=== PATIENT | female | born 1930 | race Caucasian/White ===

== ENCOUNTER → 2017-01-29 | Outpatient (CLI) | payer OTHER | LOC: FIMAGING 14:47 | DX: J44.9 Chronic obstructive pulmonary disease, unspecified (principal); R91.1 Solitary pulmonary nodule ==

== ENCOUNTER 2017-05-18 07:30 | Inpatient (IN) | payer OTHER ==
--- NOTE | 2017-05-13 15:17 | GHP ---
[f rep st] PREOP HISTORY AND PHYSICAL DATE OF ADMISSION: 05/18/2017 PROBLEM: Painful right total knee arthroplasty. HISTORY OF PRESENT ILLNESS: The patient is an 86-year-old woman admitted for revision surgery on a right total knee arthroplasty. Dr. Moustapha Flores did her original total knee replacement in 1998. In the last few years she has been experiencing increasing soreness and swelling. The knee is particularly painful going up and down stairs. She has to go up stairs 1 step at a time. Her knee is stiff after sitting. She is a little more comfortable after she has been up and walking. Outpatient evaluation suggests that her patellar prosthetic component is loose. PAST MEDICAL HISTORY: She is treated for elevated cholesterol. She also uses an inhaler for emphysema. She is on valsartan for hypertension. No history of heart disease or stents. PAST SURGICAL HISTORY: She has had bilateral total shoulder arthroplasties performed by Dr. Renny Hernandez. CURRENT MEDICATIONS: ProAir inhaler. Simvastatin 40 mg per day. Utibron inhaler. Valsartan 80 mg a day for hypertension. ALLERGIES: Drugs: None. Metal allergy: None. Latex allergy: None. SOCIAL HISTORY: The patient is . She does not smoke cigarettes but she did smoke for many, many years. She occasionally drinks alcohol. She is retired. PHYSICAL EXAMINATION: GENERAL: She is an alert, healthy-appearing elderly woman. Height 5 feet 1 inch. Weight 128 pounds. BMI 24.2. EYES: Conjunctivae and sclerae are clear. Pupils are round and reactive. She has had bilateral cataract surgery. MOUTH: Good oral hygiene. No loose teeth. CHEST: Clear. HEART: Regular rhythm, no murmurs. EXTREMITIES: Pertinent findings limited to her right knee. She has full extension and 120 degrees of flexion. A small effusion is present. The patella feels like it tracks properly. She has mild patellofemoral crepitation. The patella is not tender with manipulation and compression. Her collateral ligaments are stable. IMAGING: She had films on April 09, 2017. Her femoral and tibial components look fine. Her patella is tilted and subluxed. It looks like the patellar component might be loose. IMPRESSION ON ADMISSION: 1. 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 2. Status post left total knee arthroplasty with a good result. 3. Treatment for hypertension. 4. Treatment for emphysema. 5. Treatment for elevated cholesterol. PLAN: She will undergo revision surgery for her right total knee arthroplasty. The surgery has been described to her, including the risks, complications, expectations, and recovery time. The various possibilities for the revision surgery have viewed been reviewed with her. I will probably have to redo her patellar component. I might do a tibial liner exchange if there is evidence of poly wear. All her questions have been answered. I have discussed with her the risk of infection. There is a possibility that revision surgery will not solve her pain. All her questions have been answered and she consents to surgery. /[id number]/MODL MTDD
[~2017-05-18 07:30] MED LIST: NS IV ONE; POVIDONE-IODINE 20 ML in SODIUM CL IRRIG SOLUTION 500 ML IRR ONE; ROPIVACAINE 0.2% 80 MG, EPINEPHrine 0.2 MG, KETOROLAC TROMETHAMINE 30 MG in SYRINGE 0 ML IU ONE; TRANEXAMIC ACID IV ONE
[2017-05-18] MEDS ORDERED: DEXAMETHASONE 4 MG/ML VIAL IVP ONE (08:12)
[2017-05-18] MEDS ORDERED: FAMOTIDINE 20 MG TAB PO ONE (08:12)
[2017-05-18] MEDS ORDERED: GABAPENTIN 300 MG CAP PO ONE (08:12)
[2017-05-18] MEDS ORDERED: ACETAMINOPHEN 325 MG TAB PO ONE (08:12)
[2017-05-18] MEDS ORDERED: ceFAZolin 2 GM/SWFI 2 GM/20 ML SYR IVP ONE (08:12)
[2017-05-18] MEDS ORDERED: LR 1,000 ML IV ONE (08:12)
[2017-05-18] MEDS ORDERED: LIDOCAINE 1% 2 ML INJ ID PRN (08:12)
--- NOTE | 2017-05-18 08:53 | PDHPUP ---
History & Physical Update H&P update statement: This history and physical update is based on an assessment of the patient which was completed after admission or registration (within 24 hours), but prior to the surgery/procedure. H&P update: H&P reviewed & patient examined, no change in patient's condition since H&P completed
[2017-05-18] MEDS ORDERED: MIDAZOLAM 2 MG/2 ML VIAL IVP ONE (09:17)
--- NOTE | 2017-05-18 09:17 | PDANEPAE ---
ANE History of Present Illness S/P total knee for revision ANE Past Medical History - Cardiovascular History Hx Hypertension: Yes Hx Arrhythmias: No Hx Chest Pain: No Hx Coronary Artery / Peripheral Vascular Disease: No Hx CHF / Valvular Disease: No Hx Palpitations: No - Pulmonary History Hx COPD: Yes Hx Asthma/Reactive Airway Disease: No Hx Recent Upper Respiratory Infection: Yes Hx Oxygen in Use at Home: Yes O2 in Use at Home (L/minute): 2 Hx Sleep Apnea: No Sleep Apnea Screening Result - Last Documented: Negative Pulmonary History Comment: LOW NOCTURINAL OXYGEN SATS PLACED 2L AT HS. BRONCHITIS 01/2017 TREATED WITH ANTIBIOTICS AND STEROIDS - Neurologic History Hx Cerebrovascular Accident: No Hx Seizures: No Hx Dementia: No - Endocrine History Hx Diabetes: No - Renal History Hx Renal Disorders: Yes Renal History Comment: HX OF STONES - Liver History Hx Hepatic Disorders: No - Neurological & Psychiatric Hx Hx Neurological and Psychiatric Disorders: No - Cancer History Hx Cancer: No - Congenital Disorder History Hx Congenital Disorders: No - GI History Hx Gastrointestinal Disorders: No - Other Health History Other Health History: ARTHRITIS. RANGE OF MOTION ISSUES WITH RT ARM - Chronic Pain History Chronic Pain: Yes (RT SHLDR AND RT KNEE) - Surgical History Prior Surgeries: RT SHLDR RTC 05/2015. SONAL CATARACT REMVL. SONAL TOTAL KNEE'S. RT SHLDR REPLACEMENT. HECTOR. HYSTERECTOMY. TONSILLECTOMY. APPENDECTOMY. KNEE SCOPES ANE Review of Systems Review of Systems: - Exercise capacity Exercise capacity: <4 METS, limited by disability METS (RN): 4 METS - Systems Respiratory: Reports: shortness of breath ANE Patient History - Allergies Allergies/Adverse Reactions: No Known Allergies Allergy (Unverified 03/07/13 18:54) - Home Medications Home Medications: ALPRAZolam [Xanax 0.25 MG (*)] 0.25 mg PO DAILY PRN 05/17/17 [Last Taken ] Acetaminophen/Diphenhydramine [Acetaminophen Pm Caplet] 2 each PO HS PRN [Last Taken 05/17/17] Albuterol [Proventil Inhaler HFA (*)] 1 - 2 puffs IH Q4H PRN 05/17/17 [Last Taken 05/17/17] Aspirin EC [Aspirin EC 81 mg (*)] 81 mg PO DAILY 05/17/17 [Last Taken 3 Days Ago ~05/15/17] Cholecalciferol Vit D3 [Vitamin D3 (*)] 5,000 iunits PO DAILY 05/17/17 [Last Taken 3 Days Ago ~05/15/17] Cyanocobalamin [Vitamin B12 (*)] 1,000 mcg PO DAILY 05/17/17 [Last Taken 3 Days Ago ~05/15/17] Indacaterol/Glycopyrrolate [Utibron Neohaler 27.5-15.6 Mcg] 1 each IH BID [Last Taken 05/18/17 06:00] Simvastatin [Zocor] 40 mg PO HS 05/17/17 [Last Taken 05/17/17] Valsartan [Diovan (*)] 80 mg PO BID 05/17/17 [Last Taken 05/18/17 06:00] Preservision Softgel 05/18/17 [Last Taken 3 Days Ago ~05/15/17] - NPO status NPO Since - Liquids (Date): 05/18/17 NPO Since - Liquids (Time): 06:00 NPO Since - Solids (Date): 05/17/17 NPO Since - Solids (Time): 18:00 - Anes Hx Anes Hx: no prior problems - Smoking Hx Smoking Status: Former smoker - Family Anes Hx Family Anes Hx: neg - N/A Family Hx Anesthesia Complications: NEG ANE Labs/Vital Signs - Vital Signs Blood Pressure: 161/86 Heart Rate: 78 Respiratory Rate: 14 O2 Sat (%): 95 Height: 154.94 cm Weight: 56.699 kg ANE Physical Exam - Airway Neck exam: decreased ROM Mallampati Score: Class 2 Mouth exam: normal dental/mouth exam - Pulmonary Pulmonary: other - ASA Status ASA Status: III ANE Anesthesia Plan Anesthesia Plan: MAC, spinal Regional Anesthesia: continuous NB (redose catheter in AM), adductor canal FNB Total IV Anesthesia: No
[2017-05-18] MEDS ORDERED: VANCOMYCIN 1 GM VIAL ONE (09:22)
[2017-05-18] MEDS ORDERED: ceFAZolin 1 GM/5 ML SYR ONE (09:23)
[2017-05-18] MEDS ORDERED: LIDOCAINE 2% 5 ML SDV ONE (09:32)
[2017-05-18] MEDS ORDERED: PROPOFOL/EMULSION 500 MG/50 ML BOTTLE IV ONE (09:32)
[2017-05-18] MEDS ORDERED: HYDROmorphONE/DILAUDID 1 MG/ML INJ IVP PRN (10:44)
[2017-05-18] MEDS ORDERED: NALOXONE HCL 0.4 MG/ML INJ IVP PRN (10:44)
[2017-05-18] MEDS ORDERED: ALBUTEROL 3 ML DEYVIAL IH PRN (10:44)
[2017-05-18] MEDS ORDERED: ACETAMINOPHEN 500 MG TAB PO PRN (10:44)
[2017-05-18] MEDS ORDERED: fentaNYL 100 MCG/2 ML INJ IVP PRN (10:44)
[2017-05-18] MEDS ORDERED: ONDANSETRON 4 MG/2 ML VIAL IVP PRN ×2 (10:44→11:45)
[2017-05-18] MEDS: TRANEXAMIC ACID IV ONE ×2 (10:57→11:21)
[2017-05-18] MEDS: NS IV ONE ×2 (10:57→11:21)
--- NOTE | 2017-05-18 11:23 | POSTOPPROG ---
Post Op Note Date of Operation: 05/18/17 Surgeon: Isacc Lagunas Rate And Cost Analyst: Sorin/Belkis Anesthesiologist: Dr. 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 Procedure: Revision of right total knee arthroplasty with replacement of patellar comp Inf/Abcess present in the surg proc area at time of surgery?: No EBL: 50-100 (Adductor canal block in PACU)
[2017-05-18] MEDS ORDERED: ALPRAZolam 0.25 MG TAB PO PRN (11:43)
[2017-05-18] MEDS ORDERED: ALBUTEROL 60 PUFFS/8 GM MDI IH PRN (11:43)
[2017-05-18] MEDS ORDERED: BISACODYL 10 MG SUPP PR PRN (11:45)
[2017-05-18] MEDS ORDERED: CYCLOBENZAPRINE 10 MG TAB PO PRN (11:45)
[2017-05-18] MEDS ORDERED: NS 500 ML IV PRN (11:45)
[2017-05-18] MEDS ORDERED: DIPHENOXYLATE/ATROPINE LOMOTIL 1 TAB PO PRN (11:45)
[2017-05-18] MEDS ORDERED: LACTULOSE 20 GM/30 ML UDCUP PO PRN (11:45)
[2017-05-18] MEDS ORDERED: PROMETHAZINE HCL 25 MG SUPPR PR PRN (11:45)
[2017-05-18] MEDS ORDERED: traMADol 50 MG TAB PO PRN (11:45)
[2017-05-18] MEDS ORDERED: TEMAZEPAM 15 MG CAP PO PRN (11:45)
[2017-05-18] MEDS ORDERED: KETOROLAC 30 MG/1 ML SDV IVP PRN (11:45)
[2017-05-18] MEDS ORDERED: diphenhydrAMINE 25 MG CAP PO PRN (11:45)
[2017-05-18] MEDS ORDERED: ONDANSETRON DISINTEGRATING 4 MG TAB PO PRN (11:45)
[2017-05-18] MEDS ORDERED: POLYETHYLENE GLYCOL 3350 17 GM PKT PO PRN (11:45)
[2017-05-18] MEDS ORDERED: PROMETHAZINE HCL 25 MG/ML INJ IVP PRN (11:45)
[2017-05-18] MEDS ORDERED: MAGNESIUM HYDROXIDE 30 ML UDCUP PO PRN (11:45)
[2017-05-18] MEDS ORDERED: METOCLOPRAMIDE 10 MG/2 ML VIAL IVP PRN (11:45)
[2017-05-18] MEDS ORDERED: LR 1,000 ML IV SCH (12:00)
--- NOTE | 2017-05-18 12:03 | POSTANESTH ---
Post Anesthetic Evaluation Cardiovascular Status: Similar to Pre-Op Cond Respiratory Status: Similar to Pre-op Cond. Level of Consciousness/Mental Status: Can Participate in Eval Pain Control: Adequate, Prn Tx Ordered Nausea/Vomiting Control: Adequate, Prn Tx Ordered Complications Possibly Related to Anesthesia: None Noted (Adductor canal done in PACU)
--- NOTE | 2017-05-18 12:11 | GOP ---
[f rep st] OPERATIVE REPORT DATE OF OPERATION: 05/18/2017 SURGEON: Isacc Lagunas MD SOLAR INSTALLER TECHNICIAN: Anthony Rowell and Salbador Tamayo. ANESTHESIA: Combination of Marcaine, spinal, and IV sedation. ANESTHESIOLOGIST: Dr. Gavin Del Cid. 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 PROCEDURE PERFORMED: Revision of right total knee arthroplasty with revision of patellar component. FINDINGS: DESCRIPTION OF PROCEDURE: The patient was given 2 g of IV Ancef preoperatively within 60 minutes of surgery. She also received IV tranexamic acid at a dose of 20 mg/kg. She was placed on the operating room table and given spinal anesthesia with Marcaine by Dr. Del Cid. She was then placed supine and given IV sedation. A Ferrer catheter was not used. She wore a VINCE stocking and SCD on the nonoperative leg. Her right lower extremity was prepped with ChloraPrep from the upper thigh tourniquet to the tips of the toes. It was draped free using sterile sheets, stockinette, and Ioban plastic adhesive drape. The right lower leg was wrapped with compressive Coban. The leg was exsanguinated with elevation and a 6-inch compressive wrap, and the pneumatic tourniquet was inflated to 250 mmHg. The World Health Organization time-out was performed to verify the correct patient identity and the correct surgical side and site. The Dana time-out was also performed. The AccuRevayo leg holding device was sterilely attached to the operating room table and used throughout the procedure to help position the knee. A straight midline incision made centered on the patella. Subcutaneous tissues were sharply divided, and hemostasis was obtained using electrocautery. I developed a medial subcutaneous flap and the capsule and synovium were opened in a medial parapatellar fashion. She had a moderate amount of rust brown-colored discoloration of the synovium particularly in the medial and lateral gutters. A section of synovium was obtained for culture for aerobic and anaerobic cultures. The patella was everted. Her patellar component was either positioned quite far medially originally or it had slowly slid over to a medial position on the patella. There was quite a bit of fibrous scar tissue surrounding the patellar polyethylene. This was excised. The patellar component was visibly loose. I simply had to put a small gouge under the polyethylene and lift it off the patella. There was a lot of fibrous tissue under the patella. There was also a moderate amount of poor quality bone or fragmented bone in the medial facet of the patella. It is possible this could have been avascular bone. She still had an elevated lip of bone on the lateral facet. This was lightly flattened with the power oscillating saw. This gave me a good strip of healthy bone to anchor the new patellar component. The fibrous tissue and avascular bone were removed. I used a small bur to roughen the remaining bone on the middle and medial facets. I used the cutting guide to position my 3 anchor holes. One hole was placed in an intact rim of healthy bone on the very lateral edge of the patella. The other 2 holes were in the portion of the patella that was already deficient in bone. A single batch of high viscosity methylmethacrylate cement with 1 g of powdered vancomycin added was mixed. While it was still in a doughy state the new patellar component was cemented in place. The component was a triathlon X3 symmetric patella in a size 36 mm x 10 mm thickness. It was held in place while the cement hardened. Excess cement was removed before it hardened. I then checked patellar tracking. I had lateralized the patellar component a small amount in order to get a good healthy bone for fixation. I checked carefully to make sure she had good tracking. I did a very light lateral release. She tracked properly without digital pressure. There was no visible wear on the tibial polyethylene and I didn't think it was necessary to change it. The tourniquet was deflated. A small medial edge of fragmented unhealthy bone which was exposed medial to the patellar polyethylene was removed with a rongeur. The wound was thoroughly irrigated with a dilute Betadine solution. The vastus medialis portion of the extensor mechanism was repaired with several interrupted [id number] #2 FiberWire sutures. The capsule and synovium were closed first with multiple interrupted [id number] PDS sutures, followed by a running #2 barbed Ethicon Stratafix PDO suture. At this point, I checked patellar tracking again and it looked accurate. Subcutaneous tissues were closed with a running 0 barbed Ethicon Stratafix Monoderm suture. The skin was closed with a running 3-0 barbed Ethicon Stratafix Monoderm subcuticular suture. The skin was sealed with half-inch Steri-Strips. The wound was covered with a large Mepilex waterproof sterile dressing and a 6-inch compressive wrap. A long-leg VINCE stocking and SCD were applied, followed by the cooling device. The patient wore a stocking and SCD on the opposite leg during the procedure. I used a size 36 mm in diameter by 10 mm thickness triathlon X3 symmetric patellar component. The estimated blood loss following deflation of the tourniquet was about 50 cc. The sponge and needle count were correct on 2 occasions. She was awakened from anesthesia, transferred to her hospital [facility] and taken to PACU in satisfactory condition. There were no recognized intraoperative complications. In the PACU, for additional pain control, Dr. Del Cid performed an adductor canal block. Anthony Rowell and Salbador Holliday acted as surgical assistants. Their assistance was a medical necessity for safe completion of the procedure. /[id number]/MODL MTDD
[2017-05-18] MEDS: ACETAMINOPHEN 325 MG TAB PO SCH ×2 (14:42→18:06)
[2017-05-18] MEDS ORDERED: ceFAZolin 2 GM/DEXTROSE 100 ML IV SCH (18:00)
[2017-05-18] MEDS: ceFAZolin 2 GM/SWFI 2 GM/20 ML SYR IVP SCH (18:07)
[2017-05-18] MEDS: SENNOSIDES/DOCUSATE SODIUM TAB PO SCH (20:04)
[2017-05-18] MEDS: VALSARTAN 80 MG TAB PO SCH (20:05)
[2017-05-18] MEDS: ASPIRIN 325 MG TAB PO SCH (20:06)
[2017-05-18] MEDS: FAMOTIDINE 20 MG TAB PO SCH (20:10)
[2017-05-18] MEDS ORDERED: NON-FORMULARY NEW DRUG (Simvastatin [Zocor] 40 MG) PO SCH (21:00)
[2017-05-18] MEDS ORDERED: ATORVASTATIN CALCIUM 20 MG TAB PO SCH (21:00)
[2017-05-18] MEDS: GLYCOPYRROLATE IH SCH (21:36)
[2017-05-18] MEDS: INDACATEROL IH SCH (21:36)
[2017-05-18] MEDS: oxyCODONE IR 5 MG TAB PO PRN (22:14)
[2017-05-19] MEDS: oxyCODONE IR 5 MG TAB PO PRN (00:56)
[2017-05-19] MEDS: ceFAZolin 2 GM/SWFI 2 GM/20 ML SYR IVP SCH (02:19)
[2017-05-19] MEDS: ACETAMINOPHEN 325 MG TAB PO SCH ×2 (02:27→06:16)
[2017-05-19 05:16] VITALS: RESP 16
[2017-05-19 08:10] VITALS: BP 141/82; TEMP 98.4; O2SAT 97
[2017-05-19] MEDS: SENNOSIDES/DOCUSATE SODIUM TAB PO SCH (08:17)
[2017-05-19] MEDS: ASPIRIN 325 MG TAB PO SCH (08:17)
[2017-05-19] MEDS: FAMOTIDINE 20 MG TAB PO SCH (08:18)
[2017-05-19] MEDS: VALSARTAN 80 MG TAB PO SCH (08:18)
--- NOTE | 2017-05-19 09:33 | SOAPPROG ---
SOAP Progress Note Assessment/Plan: Assessment: Afebrile. No pain. Up and walking. H/H is good. Dsg is dry. Plan: DC today. 05/19/17 09:33 Objective: Vital Signs Temp Pulse Resp BP Pulse Ox 36.9 C 86 16 141/82 H 97 05/19/17 08:00 05/19/17 08:00 05/19/17 08:00 05/19/17 08:18 05/19/17 08:00 Microbiology 05/18/17 10:28 Gram Stain - Final Knee - Tissue Laboratory Results 05/19/17 05:13 05/18/17 05/19/17 05/20/17 05:59 05:59 05:59 Intake Total 1260 Output Total 350 Balance 910 ICD10 Worksheet Patient Problems: Problems Problem Status Onset Failed total knee, right Acute Chest pain Acute
[2017-05-19] MEDS: INDACATEROL IH SCH (09:34)
[2017-05-19] MEDS: GLYCOPYRROLATE IH SCH (09:34)
[2017-05-19 09:38] VITALS: PULSE 72
--- NOTE | 2017-05-19 10:11 | GDS ---
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 OPERATION PERFORMED: 05/18/2017, revision of patellar component of right total knee arthroplasty. POSTOPERATIVE COMPLICATIONS: None. CONDITION ON DISCHARGE: Improved. DESCRIPTION OF HOSPITAL COURSE: The patient was admitted to the hospital on the morning of surgery. Her admission CBC was normal. The same day, under a combination of Marcaine, spinal, and IV sedatio n, she underwent revision of her total knee arthroplasty with revision of the patellar component. Po stoperatively, she was treated with multimodal DVT prophylaxis, including aspirin. On the first post operative day, her hemoglobin and hematocrit were 12.8 and 36.8. She made very rapid progress with p hysical therapy and ambulation. By the time of discharge, she was afebrile and was independent walki ng with a walker. DISPOSITION: Patient discharged to her home. DISCHARGE INSTRUCTIONS: She will continue aspirin 325 mg p.o. daily for 21 days. She may progress t o full weightbearing on the right as tolerated. Use VINCE stockings for 1 week. She has prescriptions for oxycodone and tramadol for pain control. I will see her back in the office on June 03, 2017. If any problems, she is to call me at the office. /[id number]/MODL
--- NOTE | 2017-05-19 12:06 | ASDISCHSUM ---
Discharge Information Plan Status:Home with No Needs Medically Cleared to Leave: Discharge Date:05/19/2017 11:10 AM CM D/C Disposition:Home, Routine, Self-Care ADT D/C Disposition:Home, Routine, Self-Care Projected Discharge Date:05/19/2017 11:10 AM Transportation at D/C: Discharge Delay Reason: Follow-Up Date:05/19/2017 11:10 AM Discharge Slot: Final Diagnosis: Placement Information Patient Contact Information Contact Name:LITZY Relationship: Address:[address] City:[place] Alternate Phone: State/Zip Code:[place] [address] Email: Financial Information Financial Class: Primary Plan Desc:MEDICARE INPATIENT Primary Plan Number:[id number] Secondary Plan Desc:LISA Secondary Plan Number:[id number] Assessment Information [facility] CM Progress Note CM Note CM Note Notes: PT rec home/outpatient. Pt medically stable for d/c, no CM d/c needs identified. Date Signed: 05/19/2017 12:06 PM Electronically Signed By:NORMAN Shrestha Intervention Information
== END 2017-05-19 11:10 | disposition home or self-care (01) | DRG 489 ==
LOC: F3N 07:30 → OBSVTOIN 07:30 → F3N 14:35
PROVIDERS: ADMIT Orthopaedic Surgery; ATTEND Orthopaedic Surgery
PROC: 0QRD0JZ Replacement of Right Patella with Synthetic Substitute, Open Approach (ICD-10-PCS; principal; 2017-05-18 09:15)
DX: T84.032A Mechanical loosening of internal right knee prosthetic joint, initial encounter (principal); E78.00 Pure hypercholesterolemia, unspecified; I10 Essential (primary) hypertension; J43.9 Emphysema, unspecified; Z79.51 Long term (current) use of inhaled steroids; Z96.611 Presence of right artificial shoulder joint; Z96.612 Presence of left artificial shoulder joint; Z91.040 Latex allergy status
CPT/HCPCS: 97110-GP; 97116-GP; 97161-GP; 97165-GO; C1713; G8978-GP-CI; G8979-GP-CI; G8980-GP-CI; G8987-GO-CI; G8988-GO-CH; G8989-GO-CH; J0171; J0690; J1100; J1885; J2250; J2704; J2795; J3370

== ENCOUNTER → 2018-09-15 | Outpatient (CLI) | payer OTHER | LOC: FIMAGING 08:45 | PROVIDERS: ATTEND Internal Medicine | DX: I10 Essential (primary) hypertension (principal); N26.1 Atrophy of kidney (terminal) ==